=== PATIENT | female | born 1960 | race Caucasian/White ===

== ENCOUNTER → 2024-04-11 17:10 | Outpatient (REF) | payer OTHER, SELFPAY | LOC: WDC 17:10 | PROVIDERS: ATTENDING PHYSICIAN Nurse Practitioner Family | DX: Z12.31 Encounter for screening mammogram for malignant neoplasm of breast (principal); Z12.39 Encounter for other screening for malignant neoplasm of breast | CPT/HCPCS: 77063; 77067 ==

== ENCOUNTER → 2024-04-18 07:48 | Outpatient (REF) | payer OTHER, SELFPAY | LOC: RAD 07:48 | PROVIDERS: ATTENDING PHYSICIAN Nurse Practitioner Family | DX: M81.0 Age-related osteoporosis without current pathological fracture (principal) | CPT/HCPCS: 77080 ==